=== PATIENT | female | born 1960 | race Caucasian/White ===

== ENCOUNTER 2017-10-19 11:52 | Outpatient (CLI) | payer BC ==
[~2017-10-19] VITALS: Ht 170.2 cm; Wt 92.1 kg
[2017-10-19] MEDS ORDERED: OMEG-9 PO (12:05)
[2017-10-19] MEDS ORDERED: LEVO125T6 PO (12:05)
[2017-10-19] MEDS ORDERED: ASPI-586 PO (12:05)
[2017-10-19 12:09] VITALS: BP 153/95
== END 2017-10-19 12:39 | disposition home or self-care (01) ==
LOC: PREOP 11:52
PROVIDERS: ATTEND Podiatrist Foot & Ankle Surgery
DX: Z01.818 Encounter for other preprocedural examination (principal); Z11.2 Encounter for screening for other bacterial diseases; M20.12 Hallux valgus (acquired), left foot; M77.42 Metatarsalgia, left foot
CPT/HCPCS: 87081

== ENCOUNTER → 2017-10-31 | Outpatient (CLI) | payer BC ==
[~2017-10-31] MED LIST: ASPI-586 PO; LEVO125T6 PO; OMEG-9 PO
--- NOTE | 2017-10-31 22:33 | Diagnostic Imaging Report ---
EXAMINATION: Bilateral diagnostic mammogram with tomography evaluation. The current study was also evaluated with a Computer Aided Detection (CAD) system. COMPARISON: 08/29/2017. INDICATION: Nodular densities in the parenchyma bilaterally. FINDINGS: Tomography evaluation with CC and lateral projection bilaterally is performed and demonstrates somewhat nodular appearance of the parenchyma with no definitive underlying mass. IMPRESSION: Dense nodular parenchymal pattern is seen bilaterally with no definite focal mass. Ultrasound evaluation pending. ACR BI-RADS Category 0: Incomplete. (Needs additional imaging evaluation). Result letter will be mailed to the patient. Note: At least 10% of breast cancer is not imaged by mammography. Dictated by: Dictated on workstation # [id number]
--- NOTE | 2017-10-31 22:46 | Diagnostic Imaging Report ---
Bilateral breast ultrasound. INDICATION: Nodular density seen on prior mammogram dated 10/29/2017. FINDINGS: The four quadrants and retroareolar regions of each breast is scanned with no underlying abnormality seen. IMPRESSION: Negative study. Annual screening mammograms recommended. ACR BI-RADS Category 1: Negative. Dictated by: Dictated on workstation # [id number]
== END ==
LOC: RAD 14:03
PROVIDERS: ATTEND Family Medicine
DX: N63.10 Unspecified lump in the right breast, unspecified quadrant (principal); N63.20 Unspecified lump in the left breast, unspecified quadrant
CPT/HCPCS: 77066

== ENCOUNTER 2017-11-14 08:00 | Day surgery (SDC) | payer BC ==
[~2017-11-14] VITALS: Ht 170.2 cm; Wt 92.1 kg
[2017-11-14] MEDS ORDERED: ceFAZolin 1 GM/NS 50 ML IVPB IV ONE ×2 (08:15)
[2017-11-14 08:38] VITALS: BP 147/87
[2017-11-14] MEDS: LACTATED RINGERS 1,000 ML IV PRN ×2 (08:43→10:20)
--- NOTE | 2017-11-14 09:40 | Progress Note-Pre Operative ---
Pre-Operative Progress Note H&P Reviewed The H&P was reviewed, patient examined and no changes noted. Date Seen by Provider: Nov 14, 2017 Time Seen by Provider: 09:40 Date H&P Reviewed: Nov 14, 2017 Time H&P Reviewed: 09:40 Pre-Operative Diagnosis: Hallux Valgus left VALDEMAR LARIOS DPM Nov 14, 2017 9:40 am
[2017-11-14] MEDS ORDERED: fentaNYL INJECTION 100 MCG/2 ML AMP ONE (09:41)
[2017-11-14] MEDS ORDERED: MIDAZOLAM 2 MG/2 ML (VERSED) VIAL ONE (09:41)
[2017-11-14] MEDS ORDERED: BUPIVACAINE 0.5% 30 ML (SENSORCAINE) VIAL ONE (10:02)
[2017-11-14] MEDS ORDERED: BUPIVACAINE 0.5% 30 ML (SENSORCAINE) VIAL INJ ONE (10:30)
[2017-11-14] MEDS ORDERED: DEXAMETHASONE 10 MG/ML (DECADRON) 1 ML VIAL ONE (11:00)
[2017-11-14] MEDS ORDERED: ONDANSETRON 4 MG/2 ML (SDV) Z0FRAN ONE (11:00)
[2017-11-14] MEDS ORDERED: SEVOFLURANE (ULTANE) 15 ML INHAL SOLN ONE (11:00)
[2017-11-14] MEDS ORDERED: proPOfol 200 MG/20 ML (DIPRIVAN) VIAL IV ONE (11:01)
[2017-11-14] MEDS ORDERED: LIDOCAINE PF 2% 5 ML (XYLOCAINE) VIAL ONE (11:01)
[2017-11-14] MEDS ORDERED: LACTATED RINGERS 1,000 ML IV SCH (11:04)
--- NOTE | 2017-11-14 11:04 | Progress Note-Post Operative ---
Post-Operative Progess Note Surgeon (s)/Drug Safety Specialist (s) Surgeon VALDEMAR LARIOS DPM Drug Safety Specialist: none Pre-Operative Diagnosis Hallux Valgus left Post-Operative Diagnosis Same Procedure & Operative Findings Date of Procedure 11/14/17 Procedure Performed/Findings Modified Gianni-Rock Bunionectomy, left Anesthesia Type General Estimated Blood Loss Estimated blood loss (mL): Minimal Specimens/Packing Specimens Removed None VALDEMAR LARIOS DPM Nov 14, 2017 11:04 am
[2017-11-14] MEDS ORDERED: CEPH500C PO (11:07)
[2017-11-14] MEDS ORDERED: HYDR-3812 PO (11:07)
[2017-11-14] MEDS ORDERED: HYDROcodone/APAP 5 MG/325 MG (LORTAB) TAB PO PRN (11:15)
[2017-11-14] MEDS ORDERED: fentaNYL INJECTION 100 MCG/2 ML AMP IVP PRN (11:15)
[2017-11-14] MEDS ORDERED: ONDANSETRON 4 MG/2 ML (SDV) Z0FRAN IVP PRN ×2 (11:15)
[2017-11-14] MEDS ORDERED: morphine INJ 10 MG/ML 1ML (SYR OR VIAL) IVP PRN (11:15)
[2017-11-14 12:05] VITALS: BP 131/81
[2017-11-14 12:35] VITALS: BP 141/77
--- NOTE | 2017-11-14 12:50 | Physical Therapy Ortho Eval ---
PT Orthopedic Evaluation Type of Surgery left bunionectomy Prior Level of Function Current Living Status: Significant Other Locomotion (Upon Admit): Independent Established Durable Medical Eq: None Subjective Subjective No c/o. Entry Into Home: Level Entry Motor Control Motor Control: Motor Control WNL ROM ROM: WFL, except focal deficit Strength Strength: WFL Transfer Transfers (B, C, W/C) (FIM): 7 Gait Gait Assistive Device: Crutches Right Lower Extremity: Right Weight Bearing Status RLE: Full Weight Bearing Left Lower Extremity: Left Weight Bearing Status LLE: Non Weight Bearing Gait (FIM): 2 Distance (FIM): 2=621-30 ft (80') Distance: 80' Gait Level of Assist: 6 Summary/Comments Patient is able to maintain NWB left LE without difficulty Treatment Rendered Treatment: Gait Train Assessment/Goals Goal Time Frame: 1 Visit Safe Ambulation: Yes Plan Treatment Plan: Discharge Treatment Duration: 1 Visits Per Week: 1 PT/Family Agrees to Plan: Yes Time Time In: 1225 Time Out: 1240 Total Billed Treatment Time: 15 Billed Treatment Time 1 visit [facility] 15 min No PAULA SHELTON PT Nov 14, 2017 12:50
[2017-11-14 12:53] VITALS: BP 141/77
--- NOTE | 2017-11-14 18:44 | OPERATIVE REPORT ---
DATE OF SERVICE: SURGEON: Valdemar Larios DPM. PREOPERATIVE DIAGNOSES: Hallux abductovarus with metatarsal primus varus, left. POSTOPERATIVE DIAGNOSES: Hallux abductovarus with metatarsal primus varus, left. PROCEDURE: Modified Gianni-Rock bunionectomy, left. WOUND CLASS: Clean. ANESTHESIA: General. HEMOSTASIS: Pneumatic thigh tourniquet at 300 mmHg. INDICATION: This 57-year-old female presents complaining of a painful bunion to the left foot. Conservative therapy has met with unsatisfactory results and the patient is agreeable to surgical intervention after risks and complications were discussed at length. No guarantees were extended to the patient and she is willing to proceed. DESCRIPTION OF PROCEDURE: The patient was brought back to the operating table, placed in a secure supine position. Appropriate time out was performed. A general anesthetic was then induced. Pneumatic thigh tourniquet was placed on the left lower extremity over several layers of padding. The left foot was then prepped and draped in the normal sterile manner. The left foot was then elevated and allowed to exsanguinate after which the tourniquet was inflated to 300 mmHg. Attention was then directed to the dorsal aspect of the left first metatarsophalangeal joint where a 6 cm longitudinal linear incision was created. The incision was deepened in the same plane with great care to identify and retract all vital neurovascular structures. All the necessary blood vessels were cauterized as encountered. The incision was deepened down to the capsular tissue where a longitudinal capsulotomy was performed. The capsular tissue was reflected mediolaterally exposing the hypertrophic medial eminence of the first metatarsal head, which was resected utilizing a power sagittal saw. Next, blunt dissection was carried out into the first intermetatarsal space where a lateral release was performed. The release included a release of the conjoint tendon of the adductor hallucis, a lateral capsulorrhaphy as well as a release of the fibular sesamoid ligament. The hallux was then forcibly adducted releasing additional fibers holding in its abnormal position. Attention was redirected to the medial aspect of the first metatarsal head where a Chevron-type osteotomy was performed allowing the capital fragment to translocate laterally and was fixated in its corrected position utilizing a 0.062 threaded K-wire, driven from dorsal proximal to plantar distal across the osteotomy. Excellent bony apposition and fixation was appreciated at this time. The wound was flushed with copious amounts of normal saline as the head of the first metatarsal was further contoured and smoothed with a power rasp and bur. Attention was then directed to the diaphysis of the proximal phalanx, the left hallux where an Rock type osteotomy was performed. A wedge of bone was resected with the base medial and the lateral cortices held intact. Once the wedge of bone was resected and removed, the gap was closed noting a good correction of the lateral deviation of the hallux. Two dye reel operator holes were created at the dorsal medial aspect of the osteotomy allowing a 28-gauge monofilament wire to pass through the dye reel operator hole securing the osteotomy in a closed position. The wound was flushed with copious amounts of normal saline throughout the procedure. Closure was then performed in layers. Deep closure was performed with 3-0 Vicryl, superficial with 4-0 Vicryl, skin closed with 4-0 Prolene in a horizontal mattress type stitch. Postoperative injection consisted of 20 mL of 0.5% Marcaine injected in a local infusion to the surgical site. Postoperative dressing consisted of Betadine soaked Adaptic, sterile 4 x 4, sterile Kerlix, all secured with Coban wrap. The patient tolerated the anesthesia and procedure well, was transported from the operating room to the recovery area with vital signs stable and vascular status intact to all digits of the left foot. The patient is to be nonweightbearing with crutches. She is to follow up in my office in 10 days' period of time or sooner if necessary. Job ID: [id number] DocumentID: [id number] Dictated Date: 11/14/2017 11:12:25 Brand Inspector Date: 11/14/2017 18:43:20 Dictated By: VALDEMAR LARIOS DPM
--- NOTE | 2017-11-14 19:16 | Diagnostic Imaging Report ---
Two views of the left foot. INDICATION: Postoperative evaluation. FINDINGS: There are osteotomies with internal fixation involving the proximal phalanx of the great toe and the first metatarsal neck region. The soft tissues demonstrate postoperative changes. There is good alignment. IMPRESSION: Postoperative changes about the first metatarsophalangeal joint in good alignment. Dictated by: Dictated on workstation # [id number]
== END 2017-11-14 12:53 | disposition home or self-care (01) ==
LOC: SDC 08:00
PROVIDERS: ATTEND Podiatrist Foot & Ankle Surgery
DX: M20.32 Hallux varus (acquired), left foot (principal); E78.5 Hyperlipidemia, unspecified; E03.9 Hypothyroidism, unspecified; Z88.8 Allergy status to other drugs, medicaments and biological substances; Z79.899 Other long term (current) drug therapy; Z79.82 Long term (current) use of aspirin
CPT/HCPCS: 73620

== ENCOUNTER 2018-02-06 10:00 | Outpatient (CLI) | payer BC ==
[~2018-02-06] VITALS: Ht 170.2 cm; Wt 92.1 kg
[~2018-02-06 10:00] MED LIST changes: +ACHD5005 PO; +CEPH500C PO
== END 2018-02-06 10:13 ==
LOC: PREOP 10:00
PROVIDERS: ATTEND Podiatrist Foot & Ankle Surgery
DX: Z01.818 Encounter for other preprocedural examination (principal); M20.11 Hallux valgus (acquired), right foot

== ENCOUNTER 2018-02-10 11:27 | Day surgery (SDC) | payer BC ==
[~2018-02-10] VITALS: Ht 170.2 cm; Wt 92.1 kg
[2018-02-10] MEDS: LACTATED RINGERS 1,000 ML IV PRN ×2 (12:00→13:27)
[2018-02-10] MEDS ORDERED: NS (IVPB) 50 ML ONE (12:05)
[2018-02-10] MEDS ORDERED: ceFAZolin 1,000 MG (ANCEF) VIAL ONE (12:05)
[2018-02-10] MEDS ORDERED: ceFAZolin 1 GM/NS 100 ML IVPB IV ONE ×2 (12:15)
--- NOTE | 2018-02-10 12:31 | Progress Note-Pre Operative ---
Pre-Operative Progress Note H&P Reviewed The H&P was reviewed, patient examined and no changes noted. Date Seen by Provider: Feb 10, 2018 Time Seen by Provider: 12:31 Date H&P Reviewed: Feb 10, 2018 Time H&P Reviewed: 12:31 Pre-Operative Diagnosis: Hallux Valgus right VALDEMAR LARIOS DPM Feb 10, 2018 12:31 pm
[2018-02-10] MEDS ORDERED: DEXAMETHASONE 10 MG/ML (DECADRON) 1 ML VIAL ONE ×2 (12:32→12:51)
[2018-02-10] MEDS ORDERED: BUPIVACAINE 0.25% 30 ML (SENSORCAINE) VIAL ONE (12:32)
[2018-02-10] MEDS ORDERED: ceFAZolin INJECTION 1,000 MG in NS (IVPB) 100 ML IV ONE (12:45)
[2018-02-10] MEDS ORDERED: ONDANSETRON 4 MG/2 ML (SDV) Z0FRAN ONE (12:51)
[2018-02-10] MEDS ORDERED: MIDAZOLAM 2 MG/2 ML (VERSED) VIAL ONE (12:51)
[2018-02-10] MEDS ORDERED: proPOfol 200 MG/20 ML (DIPRIVAN) VIAL IV ONE (12:51)
[2018-02-10] MEDS ORDERED: LIDOCAINE PF 2% 5 ML (XYLOCAINE) VIAL ONE (12:51)
[2018-02-10] MEDS ORDERED: fentaNYL INJECTION 100 MCG/2 ML AMP ONE (12:51)
[2018-02-10 12:55] VITALS: BP 140/77
[2018-02-10] MEDS ORDERED: SEVOFLURANE (ULTANE) 15 ML INHAL SOLN ONE (13:37)
[2018-02-10] MEDS ORDERED: LACTATED RINGERS 1,000 ML IV SCH (14:03)
--- NOTE | 2018-02-10 14:03 | Progress Note-Post Operative ---
Post-Operative Progess Note Surgeon (s)/Technical Agronomist (s) Surgeon VALDEMAR LARIOS DPM Technical Agronomist: none Pre-Operative Diagnosis Hallux Valgus right Post-Operative Diagnosis Same Procedure & Operative Findings Date of Procedure 02/10/18 Procedure Performed/Findings Gianni-Rock type Bunionectomy right foot Anesthesia Type General Estimated Blood Loss Estimated blood loss (mL): Minimal Specimens/Packing Specimens Removed None VALDEMAR LARIOS DPM Feb 10, 2018 2:03 pm
[2018-02-10] MEDS ORDERED: ACHD5005 PO (14:05)
[2018-02-10] MEDS ORDERED: CEPH500C PO (14:05)
[2018-02-10] MEDS ORDERED: morphine INJ 10 MG/ML 1ML (SYR OR VIAL) IVP PRN (14:15)
[2018-02-10] MEDS ORDERED: ONDANSETRON 4 MG/2 ML (SDV) Z0FRAN IVP PRN ×2 (14:15)
[2018-02-10] MEDS ORDERED: HYDROcodone/APAP 5 MG/325 MG (LORTAB) TAB PO PRN (14:15)
--- NOTE | 2018-02-10 14:49 | Anesthesia-General Post-Op ---
General Patient Condition Mental Status/LOC: Same as Preop Cardiovascular: Satisfactory Nausea/Vomiting: Absent Respiratory: Satisfactory Pain: Controlled Complications: Absent Post Op Complications Complications None Follow Up Care/Instructions Patient Instructions None needed. Anesthesia/Patient Condition Patient Condition Patient is doing well, no complaints, stable vital signs, no apparent adverse anesthesia problems. No complications reported per nursing. LOY ARRINGTON CRNA Feb 10, 2018 14:48
[2018-02-10 15:00] VITALS: BP 139/100
[2018-02-10 15:30] VITALS: BP 149/92
[2018-02-10 16:00] VITALS: BP 135/91
--- NOTE | 2018-02-10 16:15 | Diagnostic Imaging Report ---
INDICATION: Postop bunionectomy. Two views. FINDINGS: There is osteotomy of the base of proximal phalanx first digit as well as of the distal aspect of the first metacarpal. There has also been bone shaving along the medial metatarsal head. Internal fixation is present. Good alignment is demonstrated of the first digit. The second through fifth digits appear normal. IMPRESSION: Postop bunionectomy with osteotomies and internal fixation of the proximal phalanx and distal first metatarsal. Dictated by: Dictated on workstation # [id number]
[2018-02-10 16:35] VITALS: BP 135/91
--- NOTE | 2018-02-10 23:42 | OPERATIVE REPORT ---
DATE OF SERVICE: 02/10/2018 SURGEON: Valdemar Larios DPM. PREOPERATIVE DIAGNOSIS: Hallux abductovalgus with metatarsal primus varus, right foot. POSTOPERATIVE DIAGNOSIS: Hallux abductovalgus with metatarsal primus varus, right foot. PROCEDURE: Modified Gianni-Rock bunionectomy, right. WOUND CLASS: Clean. ANESTHESIA: General. HEMOSTASIS: Pneumatic thigh tourniquet at 300 mmHg. INDICATION: This 57-year-old female presents complaining of a painful bunion of her right foot. Conservative therapy is met with unsatisfactory results and the patient is agreeable to surgical intervention after risks and complications were discussed at length. No guarantees were extended to the patient and she is willing to proceed. DESCRIPTION OF PROCEDURE: The patient was brought back to the operating room and placed in secure supine position. Appropriate timeout was performed. General anesthetic was then induced. A pneumatic thigh tourniquet was placed on the right lower extremity over several layers of padding. The right foot was then prepped and draped in normal sterile manner. The right foot was then elevated and allowed to exsanguinate after which the tourniquet was inflated to 250 mmHg. Attention was then directed to the dorsal aspect of the first metatarsophalangeal joint where a 6 cm longitudinal linear incision was created. The incision was deepened in the same plane with great care to identify and retract all vital neurovascular structures. All the necessary blood vessels were cauterized as encountered. The incision was deepened down the capsule where a longitudinal capsulotomy was then performed. The capsule tissue was reflected mediolaterally exposing the hypertrophic medial eminence to the first metatarsal head, which was resected utilizing a power sagittal saw. The dorsal eminence to the first metatarsal head was also resected with the power sagittal saw. Next, a blunt dissection was carried out into the first intermetatarsal space where a lateral release was performed. The conjoint tendon of the adductor hallucis was released as well as a lateral capsulorrhaphy and the fibular sesamoidal ligament. The hallux was then forcibly adducted releasing any additional fibers holding in its abnormal position. Attention was redirected to the medial aspect of the first metatarsal head, right foot where a Chevron-type osteotomy was performed from medial to lateral with a power sagittal saw. The capital fragment was translocated laterally and fixated in its corrected position utilizing a 0.062 threaded K-wire driven from proximal dorsal to plantar distal across the osteotomy. Excellent bony apposition and fixation was appreciated at this time. The head was further contoured and smoothed with a power fredi. There is excellent range of motion of the first metatarsophalangeal joint at this time, however, inspection of the first metatarsal indicated some full thickness degeneration of the articular cartilage to the medial sagittal groove. This area was then fenestrated with a smooth 0.045 K wire. The wound was flushed with copious amounts of normal saline. There remained some lateral deviation to the right hallux and an Rock type procedure was then performed. First periosteal dissection was carried out to the diaphysis of the proximal phalanx of the right hallux. Two incisions were made allowing for a wedge of bone to be resected from the diaphysis of the right hallux proximal phalanx with the lateral cortices held intact. Once this gap was closed, good correction of the hallux valgus deformity was appreciated. Two pilot boat captain holes were created at the dorsal medial aspect of the osteotomy after which a 28-gauge monofilament wire was passed through these pilot boat captain holes securing the osteotomy in a closed position. Excellent bony apposition and fixation was appreciated at this time. The wound was flushed with copious amounts of normal saline and closure was then performed in layers. Deep closure was performed with 3-0 Vicryl, superficial with 4-0 Vicryl, skin closed with 4-0 Prolene in a horizontal mattress type stitch. It should be noted that preoperatively she was injected with 10 mL of 0.25% Marcaine. Postoperatively, she was injected with 12 mL of 0.25% Marcaine followed by 10 mg of dexamethasone into the first intermetatarsal space. Pre and postoperative injections were applied in a Bermeo block. Postoperative dressing consisted of Betadine soaked Adaptic, sterile 4 x 4, sterile Kerlix, all secured with a Coban wrap. The patient tolerated the anesthesia and procedure well and was transported from the operating room to the recovery area with vital signs stable and vascular status intact to all digits of the right foot. Postoperative instructions were discussed with the patient as well as prescription for Keflex and hydrocodone. She is to follow up in my office in 10 days' period of time or sooner if necessary and she will be nonweightbearing on the right foot. Job ID: [id number] DocumentID: [id number] Dictated Date: 02/10/2018 14:11:40 Safe Expert Date: 02/10/2018 23:41:54 Dictated By: VALDEMAR LARIOS DPM
== END 2018-02-10 16:35 | disposition home or self-care (01) ==
LOC: SDC 11:27
PROVIDERS: ATTEND Podiatrist Foot & Ankle Surgery
DX: M20.11 Hallux valgus (acquired), right foot (principal); E03.9 Hypothyroidism, unspecified; Z79.82 Long term (current) use of aspirin; Z79.899 Other long term (current) drug therapy
CPT/HCPCS: 73620; 87081

== ENCOUNTER → 2020-04-07 | Outpatient (CLI) | payer BC ==
--- NOTE | 2020-04-07 08:52 | Diagnostic Imaging Report ---
INDICATION: Routine screening. COMPARISON: 08/29/2017. TECHNIQUE: 2D and 3D bilateral screening mammography was performed with CAD. FINDINGS: Both breasts are heterogeneously dense, limiting the sensitivity of mammography. No dominant mass or malignant appearing microcalcifications are seen. The axillae are unremarkable. IMPRESSION: No mammographic features suspicious for malignancy are identified. ACR BI-RADS Category 1: Negative. Result letter will be mailed to the patient. Note: At least 10% of breast cancer is not imaged by mammography. Dictated by: Dictated on workstation # [id number]
== END ==
LOC: RAD 07:27
PROVIDERS: ATTEND Family Medicine
DX: Z12.31 Encounter for screening mammogram for malignant neoplasm of breast (principal)
CPT/HCPCS: 77063; 77067

== ENCOUNTER → 2022-05-07 | Outpatient (CLI) | payer BC ==
--- NOTE | 2022-05-07 18:40 | Diagnostic Imaging Report ---
INDICATION: Routine screening. COMPARISON: Prior mammograms from 04/07/2020 and 10/31/2017. EXAMINATION: 2D and 3D bilateral screening mammography was performed with CAD. The current study was also evaluated with a Computer Aided Detection (CAD) system. FINDINGS: Both breasts are heterogeneously dense, limiting the sensitivity of mammography. No dominant mass or malignant-appearing microcalcifications are seen. Axillae are unremarkable. IMPRESSION: No mammographic features suspicious for malignancy are identified. ACR BI-RADS Category 1: Negative. Result letter will be mailed to the patient. Note: At least 10% of breast cancer is not imaged by mammography. Dictated by: Dictated on workstation # [id number]
== END ==
LOC: RAD 10:26
PROVIDERS: ATTEND Family Medicine
DX: Z12.31 Encounter for screening mammogram for malignant neoplasm of breast (principal)
CPT/HCPCS: 77063; 77067